=== PATIENT | male | born 1995 | race Caucasian/White ===

== ENCOUNTER 2016-11-26 05:22 | Outpatient (CLI) | payer SELFPAY | END 2016-11-26 05:23 | disposition critical access hospital (66) | LOC: EMS 05:22 | PROVIDERS: ATTEND Surgery | DX: R22.0 Localized swelling, mass and lump, head (principal) | CPT/HCPCS: A0425; A0429 ==

== ENCOUNTER 2016-11-26 05:39 | Emergency (ER) | payer MEDICAID ==
--- NOTE | 2016-11-26 06:01 | ED Physician Documentation ---
History of Present Illness - Stated complaint Stated Complaint: LIP INJURY - Chief complaint Chief Complaint: Wound - History obtained from History obtained from: Patient - History of Present Illness Timing: Last night Pain level now: 7 Improved by: no ameliorating factors Worsened by: palpation (increases pain) - Additonal information Additional information: patient c/o lower lip and left jaw pain and swelling since last night. Patient says he bit his lip recently and last night it started swelling so he "tried to drain it" by "squeezing" the lower lip. He admits to drug use and says he used heroin and methamphetamines last night Review of Systems Constitutional: reports: Fever (fever in ED (patient was not aware he had fever) ) Throat: reports: Other (painful, swollen lower lip). denies: Dental pain / toothache Skin: reports: Lesions (diffuse pick gan) PD PAST MEDICAL HISTORY - Past Medical History Past Medical History: Yes Psych: Bipolar disorder, Post traumatic stress disorder - Past Surgical History Past Surgical History: No - Present Medications Home Medications: Ambulatory Orders Medication Instructions Recorded Confirmed Clindamycin HCl 300 mg PO Q6HR 7 Days 11/26/16 oxyCODONE/ACET 5/325 [Percocet 5 1 - 2 each PO Q6H PRN #14 tablet 11/26/16 mg/325 mg] - Allergies Allergies/Adverse Reactions: Allergies Allergy/AdvReac Type Severity Reaction Status Date / Time No Known Drug Allergies Allergy Verified 11/26/16 05:49 - Social History Does the pt smoke?: Yes Smoking Status: Current every day smoker Does the pt drink ETOH?: Yes Does the pt have substance abuse?: Yes Substance Use and Type: Meth, Heroin, Other - Immunizations Immunizations: TDAP >10years/unknown - POLST Patient has POLST: No PD ED PE NORMAL - Vitals Vital signs reviewed: Yes - General General: Alert and oriented X 3, No acute distress, Well developed/nourished PD ED PE EXPANDED - HEENT HEENT: Other (lower lip, from midline to left oral fissure, is firmly swollen without fluctuance or discharge.) - Derm Derm: Pick gan (diffuse on BUE, neck, face, scalp) Results - Vitals Vitals: Vital Signs - 24 hr 11/26/16 11/26/16 05:44 06:44 Temperature 38.3 C H 38 C H Heart Rate 117 H 114 H Respiratory 17 17 Rate Blood Pressure 140/74 H 141/79 H O2 Saturation 100 97 Oxygen O2 Source Room air PD MEDICAL DECISION MAKING - ED course Complexity details: considered differential, d/w patient ED course: patient has active drug abuse. I ordered percocet in ED and prescribed it as he has a grossly swollen and infected lower lip that is exquisitely tender; non- narcotic medication is unlikely to provide adequate pain relief. Departure - Departure Disposition: 01 Home, Self Care Clinical Impression: Cellulitis, lip Condition: Good Instructions: ED Cellulitis Facial Follow-Up: [facility] [Provider Group] [facility] [Provider Group] Prescriptions: Clindamycin HCl 300 mg PO Q6HR 7 Days oxyCODONE/ACET 5/325 [Percocet 5 mg/325 mg] 1 - 2 each PO Q6H PRN #14 tablet PRN Reason: Pain Discharge Date/Time: 11/26/16 06:55
[2016-11-26] MEDS ORDERED: CLINDAMYCIN 150 MG CAPSULE PO STA (06:03)
[2016-11-26] MEDS ORDERED: oxyCOD/ACETAMIN 5 MG/325 MG TABLET PO STA (06:03)
[2016-11-26] MEDS ORDERED: CLINDAMYCIN 150 MG CAPSULE PO ONE (06:08)
[2016-11-26] MEDS ORDERED: oxyCOD/ACETAMIN 5 MG/325 MG TABLET PO ONE (06:09)
[2016-11-26] MEDS ORDERED: IBUPROFEN 600 MG TABLET PO STA (06:44)
[2016-11-26 06:45] VITALS: BP 141/79
[2016-11-26] MEDS ORDERED: IBUPROFEN 600 MG TABLET PO ONE (06:51)
== END 2016-11-26 06:55 | disposition home or self-care (01) ==
LOC: EDBD → ED 05:39
DX: K13.0 Diseases of lips (principal); F17.200 Nicotine dependence, unspecified, uncomplicated
CPT/HCPCS: 99283; A9270